=== PATIENT | female | born 1955 | race Caucasian/White ===

== ENCOUNTER → 2016-06-28 | Outpatient (CLI) | payer BC ==
[2016-06-28 10:34] LABS: BUN/CREATININE RATIO 6 (0-10)
== END ==
LOC: LAB 08:19
PROVIDERS: Ophthalmology
DX: J44.9 Chronic obstructive pulmonary disease, unspecified (principal); J43.9 Emphysema, unspecified
CPT/HCPCS: 36415; 71020; 80048; 93005